=== PATIENT | male | born 1960 | race Caucasian/White ===

== ENCOUNTER → 2017-04-07 | Outpatient (REF) ==
[~2017-04-07] MED LIST: ALLEGRA ALLERGY60 MG PO; B12 INJECTION; CYANOCOBAL1000 MCG/1; FLEXERIL10 MG PO; FLOMAX 0.40.4 MG/CAP PO; HYDROCODONE BIT1 TA3 PO; PERCOCET 325 MG1 TA2 PO; PERCOCET 500 MG1 TAB PO; PREVACID 15MG15 M1 PO; SOMA250 MG PO; THERAPEUTIC VIT1 CAP PO
== END ==
LOC: WSOH 08:25
DX: Z02.4 Encounter for examination for driving license (principal)

== ENCOUNTER 2018-05-10 09:43 | Emergency (ER) | payer BC ==
[~2018-05-10] VITALS: Ht 182.9 cm; Wt 118.2 kg
[~2018-05-10 09:43] MED LIST changes: -CYANOCOBAL1000 MCG/1; +VITAMIN B11000 MCG/M IM
[2018-05-10 09:46] VITALS: TEMP 98.7
[2018-05-10] MEDS ORDERED: ASPIRIN 81M81 MG/TA2 PO (10:03)
[2018-05-10 10:52] LABS: BASO # 0.1 (0.0-0.2); BASO % 0.7 % (0.0-2.0); EOS # 0.2 (0.0-0.7); EOS % 2.2 % (0-4.0); GRAN # 5.3 (1.4-6.5); GRAN % 77.8 % (42.2-75.2); HEMATOCRIT 45.5 % (42.0-52.0); LYMPH # 0.7 (1.2-3.4); LYMPH % 9.7 % (20.0-51.0); MEAN CELL VOLUME 83 fl (80.0-100.0); MEAN CORPUSCULAR HEMOGLOBIN 27 pg (27.0-31.0); MEAN CORPUSCULAR HGB CONC 33 g/dl (33.0-37.0); MONO # 0.6 (0.1-0.6); MONO % 8.9 % (1.7-9.3); PLATELET COUNT 168 K/mm3 (130-400); RED BLOOD COUNT 5.51 M/mm3 (4.20-5.60); REDCELL DISTRIBUTION WIDTH-CV 14.2 % (11.5-14.5)
[2018-05-10 10:57] LABS: INR 1.2 (0.8-3.0); PROTHROMBIN TIME 13.2 SECONDS (9.7-12.8)
[2018-05-10 11:03] LABS: ALBUMIN 3.6 gm/dL (3.5-5.0); BILIRUBIN,TOTAL 0.5 mg/dL (0.0-1.0); CALCIUM 8.8 mg/dL (8.4-10.2); CREATININE, serum 0.97 mg/dL (0.66-1.25); POTASSIUM 3.8 mmol/L (3.4-5.0); TOTAL PROTEIN 7.1 gm/dL (6.4-8.2)
[2018-05-10 12:11] VITALS: BP 133/80; PULSE 89
[2018-05-15] MEDS ORDERED: NIZORAL CR 30GM TOP (11:06)
[2018-05-15] MEDS ORDERED: DIFLUCAN 100MG100 MG PO (11:08)
[2018-05-15] MEDS ORDERED: LASIX 20MG TABL20 MG PO (11:09)
[2018-05-17] MEDS ORDERED: LIPITOR20 MG PO (14:22)
[2018-05-17] MEDS ORDERED: KEPPRA 500MG500 MG PO (16:09)
== END 2018-05-10 12:13 | disposition home or self-care (01) ==
LOC: COL.ER 09:43
PROVIDERS: Nurse Practitioner
DX: R60.0 Localized edema (principal); I10 Essential (primary) hypertension; N40.0 Benign prostatic hyperplasia without lower urinary tract symptoms

== ENCOUNTER 2018-08-24 07:05 | Outpatient (CLI) | payer BC ==
[~2018-08-24] VITALS: Ht 182.9 cm; Wt 131.8 kg
[2018-08-24] VITALS (7 sets, daily range): BP systolic 103–120; BP diastolic 65–76; PULSE 65–80; TEMP 98
[~2018-08-24 07:05] MED LIST changes: +ALLEGRA-D 24HR1 T24 PO; +ASPIRIN 81M81 MG/TA2 PO; +DIFLUCAN 100MG100 MG PO; +INDERAL 10MG10 MG PO; +KEPPRA 500MG500 MG PO; +KEPPRA1000 MG PO; +LASIX 20MG TABL20 MG PO; +LIPITOR 40MG TA40 MG PO; +LIPITOR20 MG PO; +NIZORAL CR 30GM TOP
[2018-08-24 09:28] LABS: GLUCOSE,CSF 60 mg/dL (40-70); TOTAL PROTEIN,CSF 66 mg/dL (15-45)
[2018-08-24 10:08] LABS: CSF APPEARANCE CLEAR; CSF COLOR COLORLESS; CSF RBC 8 /mm3 (0-0)
[2018-08-24 10:09] LABS: CSF MONONUCLEAR 100 % (70-100); CSF POLYMORPHONUCLEAR 0 % (0-6)
== END 2018-08-24 10:45 | disposition home or self-care (01) ==
LOC: COL.RAD 07:05
PROVIDERS: Psychiatry & Neurology Neurology
DX: G37.9 Demyelinating disease of central nervous system, unspecified (principal); R90.82 White matter disease, unspecified; R93.0 Abnormal findings on diagnostic imaging of skull and head, not elsewhere classified

== ENCOUNTER 2019-03-08 06:22 | Emergency (ER) | payer BC ==
[~2019-03-08] VITALS: Ht 182.9 cm; Wt 136.4 kg
[2019-03-08 06:27] VITALS: TEMP 97.6
[2019-03-08] MEDS ORDERED: NEXIUM 40MG40 MG PO (06:47)
[2019-03-08] MEDS ORDERED: LODINE400 MG (06:48)
[2019-03-08] MEDS ORDERED: NORCO 325 MG-51 TAB PO (06:48)
[2019-03-08] MEDS ORDERED: LASIX 20MG TABL20 MG PO (07:19)
[2019-03-08 07:44] LABS: BASO # 0.1 (0.0-0.2); BASO % 0.9 % (0.0-2.0); EOS # 0.2 (0.0-0.7); EOS % 2.8 % (0-4.0); GRAN # 5.7 (1.4-6.5); GRAN % 76.1 % (42.2-75.2); HEMATOCRIT 43.6 % (42.0-52.0); HEMOGLOBIN 13.8 g/dl (13.5-18.0); LYMPH # 0.8 (1.2-3.4); LYMPH % 10.9 % (20.0-51.0); MEAN CELL VOLUME 84 fl (80.0-100.0); MEAN CORPUSCULAR HEMOGLOBIN 27 pg (27.0-31.0); MEAN CORPUSCULAR HGB CONC 32 g/dl (33.0-37.0); MONO # 0.7 (0.1-0.6); MONO % 8.6 % (1.7-9.3); PLATELET COUNT 187 K/mm3 (130-400); RED BLOOD COUNT 5.18 M/mm3 (4.20-5.60); REDCELL DISTRIBUTION WIDTH-CV 14.1 % (11.5-14.5)
[2019-03-08 07:51] LABS: ALBUMIN 3.7 gm/dL (3.5-5.0); BILIRUBIN,TOTAL 0.5 mg/dL (0.0-1.0); CALCIUM 8.6 mg/dL (8.4-10.2); CREATININE, serum 0.98 (0.66-1.25); TOTAL PROTEIN 6.9 gm/dL (6.4-8.2)
[2019-03-08 08:35] LABS: COLLECTION METHOD CLEAN CATCH
[2019-03-08 08:40] LABS: MUCOUS Present /lpf; PH 6 (5-8); SQUAMOUS EPITHELIAL 0-2 /hpf; URINE APPEARANCE Clear; URINE BACTERIA None Seen /hpf; URINE BILIRUBIN Negative (NEGATIVE); URINE BLOOD Negative (NEGATIVE); URINE COLOR Straw; URINE GLUCOSE Negative (NEGATIVE); URINE KETONE Negative (NEGATIVE); URINE LEUKOCYTE ESTERASE Negative (NEGATIVE); URINE NITRATE Negative (NEGATIVE); URINE PROTEIN(semi-quant) Negative (NEGATIVE); URINE RBC 0-2 /hpf; URINE UROBILINOGEN Negative (NEGATIVE)
[2019-03-08 09:35] VITALS: BP 104/50; PULSE 77
== END 2019-03-08 09:37 | disposition home or self-care (01) ==
LOC: COL.ER 06:22
PROVIDERS: Emergency Medicine
DX: R60.9 Edema, unspecified (principal); Z90.89 Acquired absence of other organs; F17.290 Nicotine dependence, other tobacco product, uncomplicated; Z79.82 Long term (current) use of aspirin
CPT/HCPCS: J1200; J1940; J2765

== ENCOUNTER 2021-05-13 14:20 | Emergency (ER) | payer BC ==
[~2021-05-13] VITALS: Ht 182.9 cm; Wt 136.4 kg
[~2021-05-13 14:20] MED LIST changes: +LODINE400 MG; +NEXIUM 40MG40 MG PO; +NORCO 325 MG-51 TAB PO
[2021-05-13 14:32] VITALS: TEMP 98.4
[2021-05-13 15:45] LABS: BASO # 0.1 (0.0-0.2); BASO % 0.6 % (0.0-2.0); EOS # 0.2 (0.0-0.7); EOS % 2.1 % (0-4.0); GRAN # 6.3 (1.4-6.5); GRAN % 76.3 % (42.2-75.2); HEMATOCRIT 43.9 % (42.0-52.0); HEMOGLOBIN 13.8 g/dl (13.5-18.0); LYMPH % 12.4 % (20.0-51.0); MEAN CELL VOLUME 83 fl (80.0-100.0); MEAN CORPUSCULAR HEMOGLOBIN 26 pg (27.0-31.0); MEAN CORPUSCULAR HGB CONC 31 g/dl (33.0-37.0); MEAN PLATELET VOLUME 10.3 fl (7.4-10.4); MONO # 0.7 (0.1-0.6); MONO % 8.2 % (1.7-9.3); PLATELET COUNT 193 K/mm3 (130-400); RED BLOOD COUNT 5.32 M/mm3 (4.20-5.60); REDCELL DISTRIBUTION WIDTH-CV 13.9 % (11.5-14.5)
[2021-05-13 15:46] LABS: COLLECTION METHOD CLEAN CATCH
[2021-05-13 15:52] LABS: PH 6 (5-8); SQUAMOUS EPITHELIAL 0-2 /hpf; URINE APPEARANCE Clear; URINE BACTERIA None Seen /hpf; URINE BILIRUBIN Negative (NEGATIVE); URINE BLOOD Negative (NEGATIVE); URINE COLOR Straw; URINE GLUCOSE Negative (NEGATIVE); URINE KETONE Negative (NEGATIVE); URINE LEUKOCYTE ESTERASE Negative (NEGATIVE); URINE NITRATE Negative (NEGATIVE); URINE PROTEIN(semi-quant) Negative (NEGATIVE); URINE RBC 0-2 /hpf; URINE UROBILINOGEN Negative (NEGATIVE)
[2021-05-13 15:57] LABS: ALANINE AMINOTRANSFERASE 34 U/L (4-49); ALBUMIN 3.7 gm/dL (3.5-5.0); ALKALINE PHOSPHATASE 88 U/L (50-136); ANION GAP 4 mmol/L (7-16); AST,SGOT 37 U/L (15-37); BILIRUBIN,TOTAL 0.4 mg/dL (0.0-1.0); BLOOD UREA NITROGEN 12 mg/dL (9-20); C-REACTIVE PROTEIN 0.7 mg/dL (0.0-0.9); CALCIUM 8.6 mg/dL (8.4-10.2); CARBON DIOXIDE 26 mmol/L (22-30); CHLORIDE 107 mmol/L (98-107); CREATININE, serum 0.83 (0.66-1.25); GLUCOSE 93 mg/dL (74-106); SODIUM 137 mmol/L (137-145)
[2021-05-13] MEDS ORDERED: LIPITOR20 MG PO (16:20)
[2021-05-13 16:26] LABS: TROPONIN-I < 0.012 ng/mL (0.000-0.035)
[2021-05-13 18:03] VITALS: BP 117/83; PULSE 76
== END 2021-05-13 18:10 | disposition home or self-care (01) ==
LOC: COL.ER 14:20
PROVIDERS: Nurse Practitioner Primary Care
DX: M62.81 Muscle weakness (generalized) (principal); G89.29 Other chronic pain; M54.41 Lumbago with sciatica, right side; R60.0 Localized edema; G40.909 Epilepsy, unspecified, not intractable, without status epilepticus; K21.9 Gastro-esophageal reflux disease without esophagitis; N40.0 Benign prostatic hyperplasia without lower urinary tract symptoms; Z86.73 Personal history of transient ischemic attack (TIA), and cerebral infarction without residual deficits; Z87.891 Personal history of nicotine dependence; Z79.899 Other long term (current) drug therapy
CPT/HCPCS: J1650

== ENCOUNTER → 2021-05-14 | Outpatient (CLI) | payer BC | LOC: COL.VAS 07:58 | DX: R60.0 Localized edema (principal) ==

== ENCOUNTER 2022-09-13 16:41 | Emergency (ER) | payer BC ==
[~2022-09-13] VITALS: Ht 182.9 cm; Wt 136.4 kg
[2022-09-13 17:59] LABS: BASO # 0.1 K/mm3 (0.0-0.2); BASO % 0.7 % (0.0-2.0); EOS # 0.2 K/mm3 (0.0-0.7); EOS % 2.3 % (0.0-4.0); GRAN # 7.6 K/mm3 (1.4-6.5); GRAN % 75.5 % (42.2-75.2); HEMATOCRIT 42.6 % (42.0-52.0); HEMOGLOBIN 13.7 g/dl (13.5-18.0); LYMPH # 1.2 K/mm3 (1.2-3.4); LYMPH % 12.3 % (20.0-51.0); MEAN CELL VOLUME 82 fl (80.0-100.0); MEAN CORPUSCULAR HEMOGLOBIN 26 pg (27-31); MEAN CORPUSCULAR HGB CONC 32 g/dl (33.0-37.0); MONO # 0.9 K/mm3 (0.1-0.6); MONO % 8.8 % (1.7-9.3); PLATELET COUNT 197 K/mm3 (130-400); RED BLOOD COUNT 5.22 M/mm3 (4.20-5.60); REDCELL DISTRIBUTION WIDTH-CV 13.7 % (11.5-14.5)
[2022-09-13 18:17] LABS: ALBUMIN 3.6 gm/dL (3.4-4.8); BILIRUBIN,TOTAL 0.4 mg/dL (0.2-1.2); CALCIUM 8.8 mg/dL (8.4-10.2); CREATININE, serum 1.06 mg/dL (0.72-1.25); POTASSIUM 4.1 mmol/L (3.5-4.5); TOTAL PROTEIN 7.1 gm/dL (6.2-8.1)
[2022-09-13 20:38] LABS: COLLECTION METHOD CATHETER
[2022-09-13 20:53] LABS: SQUAMOUS EPITHELIAL None Seen /hpf (0-10); URINE BACTERIA None Seen /hpf (NONE SEEN); URINE RBC >50 /hpf (0-2)
[2022-09-13 20:54] LABS: PH 5.5 (5.0-8.5); URINE APPEARANCE Cloudy (CLEAR/HAZY); URINE BLOOD 3+ (NEGATIVE); URINE COLOR Amber (YELLOW); URINE GLUCOSE Negative (NEGATIVE); URINE KETONE Negative (NEGATIVE); URINE NITRATE Negative (NEGATIVE); URINE PROTEIN(semi-quant) TRACE (NEGATIVE); URINE UROBILINOGEN 0.2 E.U/dL (0.2-1.0)
[2022-09-13] MEDS ORDERED: FLOMAX 0.40.4 MG/CAP PO (21:09)
[2022-09-13 22:05] VITALS: TEMP 98.6
[2022-09-13 23:15] VITALS: BP 144/78; PULSE 60
== END 2022-09-13 23:15 | disposition home or self-care (01) ==
LOC: COL.ER 16:41
PROVIDERS: Nurse Practitioner Family
DX: R33.9 Retention of urine, unspecified (principal); Z87.442 Personal history of urinary calculi
CPT/HCPCS: C1769; J0690; J1100; J2405; J2704; J3010